=== PATIENT | male | born 1960 | race Caucasian/White ===

== ENCOUNTER 2020-10-17 19:33 | Emergency (ER) | payer MEDICAID, MEDICARE ==
[2020-10-17] MEDS ORDERED: Amoxicillin/Clavulanate K 500-125 MG Tab PO ONE (22:18)
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
== END 2020-10-17 22:35 | disposition home or self-care (01) ==
LOC: DL.ED 19:33
DX: L08.9 Local infection of the skin and subcutaneous tissue, unspecified (principal); I10 Essential (primary) hypertension; Z89.512 Acquired absence of left leg below knee; Z91.048 Other nonmedicinal substance allergy status
CPT/HCPCS: 99283; A9270